=== PATIENT | female | born 1990 | race Caucasian/White ===

== ENCOUNTER 2017-08-27 23:51 | Emergency (ER) | payer OTHER ==
[~2017-08-27] VITALS: Ht 170.2 cm; Wt 71.9 kg
[2017-08-28 02:56] VITALS: BP 124/76
== END 2017-08-28 02:57 | disposition home or self-care (01) ==
LOC: EME 23:51
DX: Z77.21 Contact with and (suspected) exposure to potentially hazardous body fluids (principal); Z57.8 Occupational exposure to other risk factors; Z98.1 Arthrodesis status
CPT/HCPCS: 99281; 99284